=== PATIENT | male | born 1975 | race Caucasian/White ===

== ENCOUNTER 2023-08-13 09:36 | Outpatient (AMB) | payer OTHER, SELFPAY ==
--- NOTE | 2023-08-13 09:52 | MHC.PC.OV ---
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 Intake Note: New patient visit Allergies erythromycin base Allergy (Severe, Verified 08/13/23 09:53) Hives Medication List - Last Reconciled 08/13/23 by Kristi Palma MD oxycodone-acetaminophen 10-325 mg 1 tab PO QID PRN testosterone 81 mg topical QAM Tobacco use date assessed: 08/13/23 Dental Screening Dental Screen Date: 08/13/23 Did you have a dental visit in the last 12 months?: Yes Did you have a dental problem in the last 6 months where you did not have access to dental care?: No Was dental information given to patient?: Patient has dentist HPI HPI Comments History of Present Illness Details The patient is a 48 year old male with a past medical history of chronic pain, low testosterone presenting for follow up. Transfer records not yet received Chronic pain: On percocet 10/325mg daily QID qty 112. Utox within the year. Previously seeing ortho/physiatry. Family history of prostate cancer. Requests psa. No symptoms ROS CONSTITUTIONAL: Denies weight loss, fever and chills. HEENT: Denies changes in vision and hearing. RESPIRATORY: Denies SOB and cough. CV: Denies palpitations and CP GI: Denies abdominal pain, nausea, vomiting and diarrhea. : Denies dysuria and urinary frequency. MSK: Denies new myalgia and joint pain. SKIN: Denies rash and pruritus. NEUROLOGICAL: Denies headache PSYCHIATRIC: Denies recent changes in mood. PHYSICAL EXAM: GENERAL: Alert and oriented x 3. NAD EYES: EOMI. Anicteric. HENT: Moist mucous membranes. No scleral icterus. No cervical lymphadenopathy. LUNGS: Clear to auscultation bilaterally. CARDIOVASCULAR: Regular rate and rhythm. No murmur. No JVD. ABDOMEN: Soft, non-tender +bs EXTREMITIES: No edema. Non-tender. SKIN: No rashes or lesions. Warm. NEUROLOGIC: No focal neurological deficits. CN II-XII grossly intact PSYCHIATRIC: Cooperative. Appropriate mood and affect [facility] Surgical History (Updated 08/13/23 @ 10:07 by Meera Horton CMA) S/P right knee arthroscopy H/O arthroscopy of left knee H/O vasectomy S/P tonsillectomy Family History (Updated 08/13/23 @ 10:11 by Meera Horton CMA) Father Hypercholesteremia Paternal Grandmother Breast cancer Paternal Grandfather Prostate cancer Social History Housing: House Patient Tobacco Use Status: Former Tobacco user Cigarette Packs Per Day: 1 Years Smoked: 20 e-Cigarette/Vaping Use: Currently Using Second Hand Smoke Exposure: No service: No Current occupational status: retired 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 1. Little interest or pleasure in doing things: not at all 2. Feeling down, depressed, or hopeless: not at all 3. Trouble falling or staying asleep, or sleeping too much: not at all 4. Feeling tired or having little energy: not at all 5. Poor appetite or overeating: not at all 6. Feeling bad about yourself - or that you are a failure or have let yourself or your family down: not at all 7. Trouble concentrating on things, such as reading the newspaper or watching television: not at all 8. Moving or speaking so slowly that other people could have noticed. Or the opposite - being so fidgety or restless that you have been moving around a lot more than usual: not at all 9. Thoughts that you would be better off or of hurting yourself in some way: not at all Total score: 0 Depression Screening Interpretation: Negative Depression Screening Done: Yes 42202 - PHQ-9 Billing: Yes Source: Developed by Drs. Jeffrey Lubin, Galilea Mittal, Byron Wild and colleagues, with an educational valerie from [employer]. Thrive Questionnaire Date Thrive assessed: 08/13/23 I am a: Patient What is your living situation today?: I have a steady place to live Within the past 12 months, did the food you bought not last and you didn't have the money to get more?: Never true Within the past 12 months, did you worry whether your food would run out before you got money to buy more?: Never true Do you have trouble paying for medicines?: No Do you have trouble getting transportation to medical appointments?: No Do you have trouble paying your heating and electricity bill?: No Do you have trouble taking care of your child, family member or friend?: No Do you have trouble with day-to-day activities such as bathing, preparing meals, shopping, managing finances, etc.?: No Are you currently unemployed and looking for a job?: No Are you interested in more education?: No Please select the resources that you would like help with: None Currently or been in a relationship where the following occur: no concerns reported THRIVE Score: 0 AUDIT C Alcohol Use Questionnaire (AUDIT-C) 1. How often do you have a drink containing alcohol?: 2-3 times a week 2. How many drinks containing alcohol do you have on a typical day when you are drinking?: 3 or 4 3. How often do you have six or more drinks on one occasion?: Never Total Score: 4 ROBBI-7 AMB Questionnaire ROBBI-7 Date ROBBI - 7 assessed: 08/13/23 Feeling nervous, anxious, or on edge: 1 = Several days Not being able to stop or control worryin = Several days Worrying too much about different things: 1 = Several days Trouble relaxin = Several days Being so restless that it is hard to sit still: 1 = Several days Becoming easily annoyed or irritable: 1 = Several days Feeling afraid as if something awful might happen: 1 = Several days Total ROBBI-7 score (0-4 normal; 5-9 mild; 10-14 moderate; 15-21 severe): 7 Source: Developed by Drs. Jeffrey Lubin, Galilea Mittal, Byron Wild and colleagues, with an educational valerie from [employer]. ROBBI-7 Assessment Billing ROBBI-7 Assessment Tool: ROBBI-7 Assessment 94104 Physical exam (Primary Care) Vital Signs: Last Vital Signs Temp 98.1 F 08/13/23 09:56 Pulse 74 08/13/23 09:56 Resp 14 08/13/23 09:56 BP 140/86 H 08/13/23 09:56 Pulse Ox 97 08/13/23 09:56 Oxygen Delivery Method Room Air 08/13/23 09:56 BMI result Body Mass Index 27.5 Tobacco/Smoking Status: Tobacco use Status Tobacco use date assessed 08/13/23 08/13/23 10:03 Patient Tobacco Use Status Former Tobacco user 08/13/23 10:03 e-Cigarette/Vaping Use Currently Using 08/13/23 10:03 PHQ-9: PHQ-9 Score PHQ-9: Total score 0 08/13/23 11:07 Depression Screening Interpretation: Negative Thrive Assessment: Date of Thrive Assessment Date Thrive assessed 08/13/23 08/13/23 10:03 Currently or been in a relationship where the following occur: no concerns reported Assessment and Plan Assessment & Plan (1) Medication monitoring encounter: Comment: patient will continue current pain medications. Last script from prior practice. Code(s): Z51.81 - Encounter for therapeutic drug level monitoring (2) Back pain: Code(s): M54.9 - Dorsalgia, unspecified Qualifiers: Back pain location: back pain in unspecified location Back pain laterality: unspecified Chronicity: chronic Qualified Code(s): M54.9 - Dorsalgia, unspecified; G89.29 - Other chronic pain (3) Screening for prostate cancer: Comment: psa ordered Code(s): Z12.5 - Encounter for screening for malignant neoplasm of prostate (4) Hyperlipidemia: Comment: patient will return in six month for cpe with labs prior Code(s): E78.5 - Hyperlipidemia, unspecified Qualifiers: Hyperlipidemia type: mixed hyperlipidemia Qualified Code(s): E78.2 - Mixed hyperlipidemia (5) Screening for metabolic disorder: Code(s): Z13.228 - Encounter for screening for other metabolic disorders Orders: Orders Complete Blood Count Auto Diff 5 Months E78.5 - Hyperlipidemia, unspecified, M54.9 - Dorsalgia, unspecified, Z12.5 - Encounter for screening for malignant neoplasm of prostate, Z13.228 - Encounter for screening for other metabolic disorders, Z51.81 - Encounter for therapeutic drug level monitoring Comprehensive Met. Panel 5 Months E78.5 - Hyperlipidemia, unspecified, M54.9 - Dorsalgia, unspecified, Z12.5 - Encounter for screening for malignant neoplasm of prostate, Z13.228 - Encounter for screening for other metabolic disorders, Z51.81 - Encounter for therapeutic drug level monitoring Testosterone, Free/Total 5 Months E78.5 - Hyperlipidemia, unspecified, M54.9 - Dorsalgia, unspecified, Z12.5 - Encounter for screening for malignant neoplasm of prostate, Z13.228 - Encounter for screening for other metabolic disorders, Z51.81 - Encounter for therapeutic drug level monitoring Lipid Panel 5 Months E78.5 - Hyperlipidemia, unspecified, M54.9 - Dorsalgia, unspecified, Z12.5 - Encounter for screening for malignant neoplasm of prostate, Z13.228 - Encounter for screening for other metabolic disorders, Z51.81 - Encounter for therapeutic drug level monitoring Prostate Specific Antigen 5 Months E78.5 - Hyperlipidemia, unspecified, M54.9 - Dorsalgia, unspecified, Z12.5 - Encounter for screening for malignant neoplasm of prostate, Z13.228 - Encounter for screening for other metabolic disorders, Z51.81 - Encounter for therapeutic drug level monitoring Coding Level of Care Code Est Pt Level 4 (57474) Complex EM visit Add On G2211 Diagnoses Medication monitoring encounter Z51.81 Chronic back pain, unspecified back location, unspecified back pain laterality M54.9; G89.29 Back pain location: back pain in unspecified location Back pain laterality: unspecified Chronicity: chronic Screening for prostate cancer Z12.5 Mixed hyperlipidemia E78.2 Hyperlipidemia type: mixed hyperlipidemia Screening for metabolic disorder Z13.228 Additional Codes ROBBI-7 Assessment Billing - ROBBI-7 Assessment Tool: ROBBI-7 Assessment 59536 ([id number])
[2023-08-13 09:56] VITALS: BP 140/86; PULSE 74; RESP 14; TEMP 36.7; O2SAT 97; BMI 27.5
== END 2023-08-13 10:35 | disposition home or self-care (01) ==
PROVIDERS: PCP Internal Medicine; Visit Provider Internal Medicine
DX: M54.9 Dorsalgia, unspecified (principal); G89.29 Other chronic pain; E78.2 Mixed hyperlipidemia; Z51.81 Encounter for therapeutic drug level monitoring; Z12.5 Encounter for screening for malignant neoplasm of prostate; Z13.228 Encounter for screening for other metabolic disorders
CPT/HCPCS: 99214; G2211

== ENCOUNTER 2023-11-08 15:36 | Outpatient (AMB) | payer OTHER, SELFPAY ==
--- NOTE | 2023-11-08 15:33 | MHC.PC.OV ---
Intake Visit Reasons: follow up medication Intake Note: Patient would like to follow up regarding medication. Patient is okay with a phone call earlier than his appointed time. Dramatic Director Required: No Accompanied by: Self / Same As Patient Allergies erythromycin base Allergy (Severe, Verified 08/13/23 09:53) Hives Tobacco use date assessed: 08/13/23 Dental Screening Dental Screen Date: 08/13/23 HPI HPI Comments History of Present Illness Details The patient is a 48 year old male with a past medical history of chronic pain, low testosterone presenting for follow up. Chronic pain: On percocet 10/325mg daily QID qty 112. Previously seeing ortho/physiatry. Tried cyclobenzaprine in past. Stopped working. Would like to try different muscle relaxant Family history of prostate cancer. Orders are in for psa as requested. ROS CONSTITUTIONAL: Denies weight loss, fever and chills. HEENT: Denies changes in vision and hearing. RESPIRATORY: Denies SOB and cough. CV: Denies palpitations and CP GI: Denies abdominal pain, nausea, vomiting and diarrhea. : Denies dysuria and urinary frequency. MSK: Denies new myalgia and joint pain. SKIN: Denies rash and pruritus. NEUROLOGICAL: Denies headache PSYCHIATRIC: Denies recent changes in mood. PHYSICAL EXAM: Telehealth [facility] Surgical History (Updated 08/13/23 @ 10:07 by Meera Horton CMA) S/P right knee arthroscopy H/O arthroscopy of left knee H/O vasectomy S/P tonsillectomy Family History (Updated 08/13/23 @ 10:11 by Meera Horton CMA) Father Hypercholesteremia Paternal Grandmother Breast cancer Paternal Grandfather Prostate cancer Social History Housing: House Patient Tobacco Use Status: Former Tobacco user Cigarette Packs Per Day: 1 Years Smoked: 20 e-Cigarette/Vaping Use: Currently Using Second Hand Smoke Exposure: No service: No Current occupational status: retired 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 Jeffrey Lubin, Galilea Mittal, Byron Wild and colleagues, with an educational valerie from [employer]. Physical exam (Primary Care) Tobacco/Smoking Status: Tobacco use Status Tobacco use date assessed 08/13/23 11/08/23 15:35 Patient Tobacco Use Status Former Tobacco user 11/08/23 15:35 e-Cigarette/Vaping Use Currently Using 11/08/23 15:35 Thrive Assessment: Date of Thrive Assessment Date Thrive assessed 08/13/23 11/08/23 15:35 Telehealth Telehealth Telehealth Platform: Telephone Location of provider rendering services: practice address Location of patient: address on file Patient Identification confirmed using: Name, : Yes Telehealth method: voice only Patient verbally consented to treatment: Yes Patient verbally consented to billing insurance company: Yes Patient informed of any privacy concerns related to visit: Yes Minutes spent on Phone/Video with Pt.: 26 Assessment and Plan Assessment & Plan Medications: New baclofen 5 - 10 mg (0.5 - 1 x 10 mg) PO BEDTIME 30 days 60 tabs 0RF Coding Level of Care Code Tele Est Pt Level 3 (95352)
== END 2023-11-08 16:53 | disposition home or self-care (01) ==
LOC: HO.HMGFM 15:36
PROVIDERS: PCP Internal Medicine; Visit Provider Internal Medicine
DX: G89.4 Chronic pain syndrome (principal); E29.1 Testicular hypofunction
CPT/HCPCS: 99213

== ENCOUNTER 2024-01-17 13:37 | Outpatient (AMB) | payer OTHER, SELFPAY ==
--- NOTE | 2024-01-17 13:45 | MHC.PC.OV ---
Vital Signs 01/17/24 13:46 Height 5 ft 8.9 in Weight 186 lb 4 oz BMI 27.6 BP 124/80 Blood Pressure Location Rt brachial Position Sitting Pulse 73 Pulse Source Pulse Oximeter Pulse Oximetry (%) 96 Oxygen Delivery Method Room Air Intake Visit Reasons: med review Intake Note: Medication follow up Allergies erythromycin base Allergy (Severe, Verified 01/17/24 13:45) Hives Tobacco use date assessed: 08/13/23 Dental Screening Dental Screen Date: 08/13/23 HPI HPI Comments History of Present Illness Details The patient is a 48 year old male with a past medical history of chronic pain, low testosterone presenting for follow up. Chronic pain: On percocet 10/325mg daily QID qty 112. Previously seeing ortho/physiatry. Tried cyclobenzaprine in past. Stopped working. Placed on baclofen which is helping. Family history of prostate cancer. Orders are in for psa as requested. Continues on testosterone replacement ROS CONSTITUTIONAL: Denies weight loss, fever and chills. HEENT: Denies changes in vision and hearing. RESPIRATORY: Denies SOB and cough. CV: Denies palpitations and CP GI: Denies abdominal pain, nausea, vomiting and diarrhea. : Denies dysuria and urinary frequency. MSK: Denies new myalgia and joint pain. SKIN: Denies rash and pruritus. NEUROLOGICAL: Denies headache PSYCHIATRIC: Denies recent changes in mood. PHYSICAL EXAM: GENERAL: Alert and oriented x 3. NAD EYES: EOMI. Anicteric. HENT: Moist mucous membranes. No scleral icterus. No cervical lymphadenopathy. LUNGS: Clear to auscultation bilaterally. CARDIOVASCULAR: Regular rate and rhythm. No murmur. No JVD. ABDOMEN: Soft, non-tender +bs EXTREMITIES: No edema. Non-tender. SKIN: No rashes or lesions. Warm. NEUROLOGIC: No focal neurological deficits. CN II-XII grossly intact PSYCHIATRIC: Cooperative. 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 1. Little interest or pleasure in doing things: not at all 2. Feeling down, depressed, or hopeless: not at all 3. Trouble falling or staying asleep, or sleeping too much: not at all 4. Feeling tired or having little energy: not at all 5. Poor appetite or overeating: not at all 6. Feeling bad about yourself - or that you are a failure or have let yourself or your family down: not at all 7. Trouble concentrating on things, such as reading the newspaper or watching television: not at all 8. Moving or speaking so slowly that other people could have noticed. Or the opposite - being so fidgety or restless that you have been moving around a lot more than usual: not at all 9. Thoughts that you would be better off or of hurting yourself in some way: not at all Total score: 0 Depression Screening Interpretation: Negative Depression Screening Done: Yes 08163 - PHQ-9 Billing: Yes Source: Developed by Drs. Jeffrey Lubin, Galilea Mittal, Byron Wild and colleagues, with an educational valerie from [employer]. Thrive Questionnaire Date Thrive assessed: 08/13/23 I am a: Patient What is your living situation today?: I have a steady place to live Within the past 12 months, did the food you bought not last and you didn't have the money to get more?: Never true Within the past 12 months, did you worry whether your food would run out before you got money to buy more?: Never true Do you have trouble paying for medicines?: No Do you have trouble getting transportation to medical appointments?: No Do you have trouble paying your heating and electricity bill?: No Do you have trouble taking care of your child, family member or friend?: No Do you have trouble with day-to-day activities such as bathing, preparing meals, shopping, managing finances, etc.?: No Are you currently unemployed and looking for a job?: No Are you interested in more education?: No Please select the resources that you would like help with: None Currently or been in a relationship where the following occur: No concerns reported THRIVE Score: 0 AUDIT C Alcohol Use Questionnaire (AUDIT-C) 1. How often do you have a drink containing alcohol?: 2-4 times a month 2. How many drinks containing alcohol do you have on a typical day when you are drinking?: 1 or 2 3. How often do you have six or more drinks on one occasion?: Never Total Score: 2 ROBBI-7 AMB Questionnaire ROBBI-7 Date ROBBI - 7 assessed: 08/13/23 Feeling nervous, anxious, or on edge: 0 = Not at all Not being able to stop or control worryin = Not at all Worrying too much about different things: 0 = Not at all Trouble relaxin = Not at all Being so restless that it is hard to sit still: 0 = Not at all Becoming easily annoyed or irritable: 0 = Not at all Feeling afraid as if something awful might happen: 0 = Not at all Total ROBBI-7 score (0-4 normal; 5-9 mild; 10-14 moderate; 15-21 severe): 0 Source: Developed by Drs. Jeffrey Lubin, Galilea Mittal, Byron Wild and colleagues, with an educational valerie from [employer]. Physical exam (Primary Care) Vital Signs: Last Vital Signs Pulse 73 01/17/24 13:46 BP 124/80 01/17/24 13:46 Pulse Ox 96 01/17/24 13:46 Oxygen Delivery Method Room Air 01/17/24 13:46 BMI result Body Mass Index 27.6 Tobacco/Smoking Status: Tobacco use Status Tobacco use date assessed 08/13/23 01/17/24 13:49 Patient Tobacco Use Status Former Tobacco user 01/17/24 13:49 e-Cigarette/Vaping Use Currently Using 01/17/24 13:49 PHQ-9: PHQ-9 Score PHQ-9: Total score 0 01/17/24 13:52 Depression Screening Interpretation: Negative Thrive Assessment: Date of Thrive Assessment Date Thrive assessed 08/13/23 01/17/24 13:49 Currently or been in a relationship where the following occur: No concerns reported Coding Level of Care Code Est Pt Level 3 (89958) Diagnoses Chronic back pain, unspecified back location, unspecified back pain laterality M54.9; G89.29 Back pain laterality: unspecified Back pain location: back pain in unspecified location Chronicity: chronic Mixed hyperlipidemia E78.2 Hyperlipidemia type: mixed hyperlipidemia Additional Codes PHQ-9 - 45292 - PHQ-9 Billing: Yes ([id number]) Assessment & Plan Assessment & Plan (1) Back pain: Code(s): M54.9 - Dorsalgia, unspecified Category: Medical Qualifiers: Back pain laterality: unspecified Back pain location: back pain in unspecified location Chronicity: chronic Qualified Code(s): M54.9 - Dorsalgia, unspecified; G89.29 - Other chronic pain Plan: Controlled on current pain regimen (2) Hyperlipidemia: Code(s): E78.5 - Hyperlipidemia, unspecified Category: Medical Qualifiers: Hyperlipidemia type: mixed hyperlipidemia Qualified Code(s): E78.2 - Mixed hyperlipidemia Plan: Lipids ordered Low cholesterol diet Medications: New sildenafil administer 30 minutes to 4 hours before activity 100 mg PO DAILY PRN 60 tabs 3RF sexual activity Changed From baclofen 5 - 10 mg (0.5 - 1 x 10 mg) PO BEDTIME 90 tabs 3RF To baclofen patient may pay out of pocket 5 - 10 mg (0.5 - 1 x 10 mg) PO BEDTIME 90 tabs 3RF From oxycodone-acetaminophen 10-325 mg 1 tab PO QID PRN 112 tabs 0RF pain To oxycodone-acetaminophen 10-325 mg Patient may pay out of pocket 1 tab PO QID PRN 112 tabs 0RF pain
[2024-01-17 13:46] VITALS: BP 124/80; PULSE 73; O2SAT 96; BMI 27.6
== END 2024-01-17 14:12 | disposition home or self-care (01) ==
PROVIDERS: PCP Internal Medicine; Visit Provider Internal Medicine
DX: M54.9 Dorsalgia, unspecified (principal); G89.29 Other chronic pain; E78.2 Mixed hyperlipidemia

== ENCOUNTER → 2024-01-17 13:37 | Outpatient (BNVA) | payer OTHER, SELFPAY | PROVIDERS: PCP Internal Medicine; Visit Provider Internal Medicine | DX: G89.29 Other chronic pain (principal); M54.9 Dorsalgia, unspecified; E78.2 Mixed hyperlipidemia; Z79.891 Long term (current) use of opiate analgesic | CPT/HCPCS: 96127 ==

== ENCOUNTER 2024-04-21 13:49 | Outpatient (AMB) | payer OTHER, SELFPAY ==
--- NOTE | 2024-04-21 14:06 | A.OFFPC_ITS ---
Vital Signs 04/21/24 14:10 Height 5 ft 8 in Weight 164 lb BMI 24.9 BP 110/60 Blood Pressure Location Lt brachial Position Sitting Respiration 14 Pulse 75 Pulse Source Pulse Oximeter Temp 97.9 F Temp Source Oral Pulse Oximetry (%) 100 Oxygen Delivery Method Room Air Intake Visit Reasons: f/u med review Intake Note: follow up on oxycodone and testosterone Allergies erythromycin base Allergy (Severe, Verified 04/21/24 14:09) Hives Medication List - Last Reconciled 04/21/24 by Kristi Palma MD baclofen 5 - 10 mg (0.5 - 1 x 10 mg) PO BEDTIME cholecalciferol (vitamin D3) PO [ic iodine ,] oxycodone-acetaminophen 10-325 mg 1 tab PO QID PRN sildenafil 100 mg PO DAILY PRN testosterone 4 pumps topical DAILY Tobacco use date assessed: 08/13/23 Dental Screening Dental Screen Date: 08/13/23 HPI HPI Comments History of Present Illness Details The patient is a 48 year old male with a past medical history of chronic pain, low testosterone presenting for follow up. Chronic pain: On percocet 10/325mg daily QID qty 112, baclofen. Pain levels are stable Previously seeing ortho/physiatry. Tried cyclobenzaprine in past. Stopped working. Family history of prostate cancer. PSA order is in. Continues on testosterone replacement New right foot pain. Was handling his 3 large dogs about 3 weeks ago and believes he must have hit the top of his right foot on a crate or similar. He has had sustained pain on the top mid right foot with some radiation into the base of the toes. He has had mild swelling in the area ROS CONSTITUTIONAL: Denies weight loss, fever and chills. HEENT: Denies changes in vision and hearing. RESPIRATORY: Denies SOB and cough. CV: Denies palpitations and CP GI: Denies abdominal pain, nausea, vomiting and diarrhea. : Denies dysuria and urinary frequency. MSK: Denies new myalgia and joint pain. SKIN: Denies rash and pruritus. NEUROLOGICAL: Denies headache PSYCHIATRIC: Denies recent changes in mood. PHYSICAL EXAM: GENERAL: Alert and oriented x 3. NAD EYES: EOMI. Anicteric. HENT: Moist mucous membranes. No scleral icterus. No cervical lymphadenopathy. LUNGS: Clear to auscultation bilaterally. CARDIOVASCULAR: Regular rate and rhythm. No murmur. No JVD. ABDOMEN: Soft, non-tender +bs EXTREMITIES: No edema. Non-tender. +DP pulses b/l. Mild mid right foot swelling SKIN: No rashes or lesions. Warm. NEUROLOGIC: No focal neurological deficits. CN II-XII grossly intact PSYCHIATRIC: Cooperative. 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 1. Little interest or pleasure in doing things: not at all 2. Feeling down, depressed, or hopeless: not at all 3. Trouble falling or staying asleep, or sleeping too much: not at all 4. Feeling tired or having little energy: not at all 5. Poor appetite or overeating: not at all 6. Feeling bad about yourself - or that you are a failure or have let yourself or your family down: not at all 7. Trouble concentrating on things, such as reading the newspaper or watching television: not at all 8. Moving or speaking so slowly that other people could have noticed. Or the opposite - being so fidgety or restless that you have been moving around a lot more than usual: not at all 9. Thoughts that you would be better off or of hurting yourself in some way: not at all Total score: 0 Source: Developed by Galilea Siddiqui B.W. Kyrie, Byron Wild and colleagues, with an educational valerie from [employer]. Thrive Questionnaire Date Thrive assessed: 08/13/23 I am a: Patient What is your living situation today?: I have a steady place to live Within the past 12 months, did the food you bought not last and you didn't have the money to get more?: I choose not to answer this question Within the past 12 months, did you worry whether your food would run out before you got money to buy more?: I choose not to answer this question Do you have trouble paying for medicines?: I choose not to answer this question Do you have trouble getting transportation to medical appointments?: I choose not to answer this question Do you have trouble paying your heating and electricity bill?: I choose not to answer this question Do you have trouble taking care of your child, family member or friend?: I choose not to answer this question Do you have trouble with day-to-day activities such as bathing, preparing meals, shopping, managing finances, etc.?: I choose not to answer this question Are you currently unemployed and looking for a job?: I choose not to answer this question Are you interested in more education?: I choose not to answer this question Please select the resources that you would like help with: None Currently or been in a relationship where the following occur: No concerns reported THRIVE Score: 0 AUDIT C Alcohol Use Questionnaire (AUDIT-C) 1. How often do you have a drink containing alcohol?: 2-3 times a week 2. How many drinks containing alcohol do you have on a typical day when you are drinking?: 1 or 2 3. How often do you have six or more drinks on one occasion?: Less than monthly Total Score: 4 ROBBI-7 AMB Questionnaire ROBBI-7 Date ROBBI - 7 assessed: 08/13/23 Feeling nervous, anxious, or on edge: 0 = Not at all Not being able to stop or control worryin = Not at all Worrying too much about different things: 0 = Not at all Trouble relaxin = Not at all Being so restless that it is hard to sit still: 0 = Not at all Becoming easily annoyed or irritable: 0 = Not at all Feeling afraid as if something awful might happen: 0 = Not at all Total ROBBI-7 score (0-4 normal; 5-9 mild; 10-14 moderate; 15-21 severe): 0 Source: Developed by Drs. Jeffrey Lubin, Galilea Mittal, Byron Wild and colleagues, with an educational valerie from [employer]. Physical exam (Primary Care) Vital Signs: Last Vital Signs Temp 97.9 F 04/21/24 14:10 Pulse 75 04/21/24 14:10 Resp 14 04/21/24 14:10 BP 110/60 04/21/24 14:10 Pulse Ox 100 04/21/24 14:10 Oxygen Delivery Method Room Air 04/21/24 14:10 BMI result Body Mass Index 24.9 Tobacco/Smoking Status: Tobacco use Status Tobacco use date assessed 08/13/23 04/21/24 14:13 Patient Tobacco Use Status Former Tobacco user 04/21/24 14:13 e-Cigarette/Vaping Use Currently Using 04/21/24 14:13 PHQ-9: PHQ-9 Score PHQ-9: Total score 0 04/21/24 14:21 Thrive Assessment: Date of Thrive Assessment Date Thrive assessed 08/13/23 04/21/24 14:13 Currently or been in a relationship where the following occur: No concerns reported Coding Level of Care Code Est Pt Level 4 (26106) Diagnoses Right foot pain M79.671 Chronic back pain, unspecified back location, unspecified back pain laterality M54.9; G89.29 Back pain location: back pain in unspecified location Chronicity: chronic Back pain laterality: unspecified Assessment & Plan Assessment & Plan (1) Right foot pain: Code(s): M79.671 - Pain in right foot Category: Medical Plan: Right foot pain-referral to ortho for ongoing pain x 3 weeks (2) Back pain: Code(s): M54.9 - Dorsalgia, unspecified Category: Medical Qualifiers: Back pain location: back pain in unspecified location Chronicity: chronic Back pain laterality: unspecified Qualified Code(s): M54.9 - Dorsalgia, unspecified; G89.29 - Other chronic pain Plan: stable on current medications Orders: Referrals Orthopedics Referral M79.671 - Pain in right foot Medications: Refilled oxycodone-acetaminophen 10-325 mg Patient may pay out of pocket 1 tab PO QID PRN 112 tabs 0RF pain
[2024-04-21 14:10] VITALS: BP 110/60; PULSE 75; RESP 14; TEMP 36.6; O2SAT 100; BMI 24.9
== END 2024-04-21 14:33 | disposition home or self-care (01) ==
PROVIDERS: PCP Internal Medicine; Visit Provider Internal Medicine
DX: M79.671 Pain in right foot (principal); M54.9 Dorsalgia, unspecified; G89.29 Other chronic pain

== ENCOUNTER 2024-07-20 15:39 | Outpatient (AMB) | payer OTHER, SELFPAY ==
--- NOTE | 2024-07-20 16:21 | MHC.PC.OV ---
Intake Visit Reasons: phone pain meds Allergies erythromycin base Allergy (Severe, Verified 04/21/24 14:09) Hives Tobacco use date assessed: 08/13/23 Dental Screening Dental Screen Date: 08/13/23 HPI HPI Comments History of Present Illness Details The patient is a 49 year old male with a past medical history of chronic pain, low testosterone presenting for follow up. Chronic pain: On percocet 10/325mg daily QID qty 112, baclofen. Pain levels are stable. Previously seeing ortho/physiatry. Tried cyclobenzaprine in past. Stopped working. Family history of prostate cancer. Continues on testosterone replacement-topical. Endorses fatigue, decreased libido. Interested in urology referral MSK right foot fracture. Saw orthopedics. Was handling his 3 large dogs about 3 weeks ago and believes he must have hit the top of his right foot on a crate or similar. He has had sustained pain on the top mid right foot with some radiation into the base of the toes. 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 Cognitive needs: No Hearing needs: Yes (Hearing aids) Vision needs: No Questionnaire Thrive Questionnaire Date Thrive assessed: 04/21/24 I am a: Patient What is your living situation today?: I have a steady place to live Within the past 12 months, did the food you bought not last and you didn't have the money to get more?: I choose not to answer this question Within the past 12 months, did you worry whether your food would run out before you got money to buy more?: I choose not to answer this question Do you have trouble paying for medicines?: I choose not to answer this question Do you have trouble getting transportation to medical appointments?: I choose not to answer this question Do you have trouble paying your heating and electricity bill?: I choose not to answer this question Do you have trouble taking care of your child, family member or friend?: I choose not to answer this question Do you have trouble with day-to-day activities such as bathing, preparing meals, shopping, managing finances, etc.?: I choose not to answer this question Are you currently unemployed and looking for a job?: I choose not to answer this question Are you interested in more education?: I choose not to answer this question Please select the resources that you would like help with: None Currently or been in a relationship where the following occur: No concerns reported THRIVE Score: 0 ROBBI-7 AMB Questionnaire ROBBI-7 Date ROBBI - 7 assessed: 08/13/23 Source: Developed by Drs. Jeffrey Lubin, Galilea Mittal, Byron Wild and colleagues, with an educational valerie from [employer]. Physical exam (Primary Care) Tobacco/Smoking Status: Tobacco use Status Tobacco use date assessed 08/13/23 07/20/24 16:21 Patient Tobacco Use Status Former Tobacco user 07/20/24 16:21 e-Cigarette/Vaping Use Currently Using 07/20/24 16:21 Thrive Assessment: Date of Thrive Assessment Date Thrive assessed 04/21/24 07/20/24 16:21 Currently or been in a relationship where the following occur: No concerns reported Telehealth Telehealth Telehealth Platform: [facility] Location of provider rendering services: practice address Location of patient: address on file Patient Identification confirmed using: Name, : Yes Telehealth method: voice only Patient verbally consented to treatment: Yes Patient verbally consented to billing insurance company: Yes Patient informed of any privacy concerns related to visit: Yes Minutes spent on Phone/Video with Pt.: 25 Coding Level of Care Code Tele Est Pt Level 3 (05871) Diagnoses Anxiety F41.9 Testosterone deficiency E34.9 Mixed hyperlipidemia E78.2 Hyperlipidemia type: mixed hyperlipidemia Chronic back pain, unspecified back location, unspecified back pain laterality M54.9; G89.29 Back pain location: back pain in unspecified location Chronicity: chronic Back pain laterality: unspecified Assessment & Plan Assessment & Plan (1) Anxiety: Code(s): F41.9 - Anxiety disorder, unspecified Category: Medical (2) Testosterone deficiency: Code(s): E34.9 - Endocrine disorder, unspecified Category: Medical (3) Hyperlipidemia: Code(s): E78.5 - Hyperlipidemia, unspecified Category: Medical Qualifiers: Hyperlipidemia type: mixed hyperlipidemia Qualified Code(s): E78.2 - Mixed hyperlipidemia (4) Back pain: Code(s): M54.9 - Dorsalgia, unspecified Category: Medical Qualifiers: Back pain location: back pain in unspecified location Chronicity: chronic Back pain laterality: unspecified Qualified Code(s): M54.9 - Dorsalgia, unspecified; G89.29 - Other chronic pain Plan Anxiety/insomnia-add propranolol. This has been beneficial in the past Decreased libido, h/o testosterone deficiency. Referral to urology placed Chronic pain-stable on current medication. Failed previous therapy Orders: Referrals Urology Referral E34.9 - Endocrine disorder, unspecified Medications: New propranolol 10 mg PO TID PRN 90 tabs 3RF anxiety Refilled oxycodone-acetaminophen 10-325 mg Patient may pay out of pocket 1 tab PO QID PRN 112 tabs 0RF pain
== END 2024-07-20 17:05 ==
LOC: HO.HMCFM 15:39
PROVIDERS: PCP Internal Medicine; Visit Provider Internal Medicine
DX: F41.9 Anxiety disorder, unspecified (principal); E34.9 Endocrine disorder, unspecified; E78.2 Mixed hyperlipidemia; M54.9 Dorsalgia, unspecified; G89.29 Other chronic pain

== ENCOUNTER → 2024-07-20 15:39 | Outpatient (BNVA) | payer OTHER, SELFPAY | PROVIDERS: PCP Internal Medicine; Visit Provider Internal Medicine ==

== ENCOUNTER 2024-09-28 11:31 | Outpatient (AMB) | payer OTHER, SELFPAY ==
--- NOTE | 2024-09-28 11:35 | MHC.PC.OV ---
Vital Signs 09/28/24 11:42 Height 5 ft 8 in Weight 163 lb 4 oz BMI 24.8 BP 120/64 Blood Pressure Location Lt brachial Position Sitting Respiration 12 Pulse 59 Pulse Source Pulse Oximeter Temp 98 F Temp Source Oral Pulse Oximetry (%) 97 Oxygen Delivery Method Room Air Intake Visit Reasons: cpe Intake Note: Physical Allergies erythromycin base Allergy (Severe, Verified 09/28/24 11:39) Hives Tobacco use date assessed: 09/28/24 Dental Screening Dental Screen Date: 09/28/24 Did you have a dental visit in the last 12 months?: No Did you have a dental problem in the last 6 months where you did not have access to dental care?: Yes Was dental information given to patient?: Patient has dentist (working on getting implants) HPI HPI Comments History of Present Illness Details The patient is a 49 year old male with a past medical history of chronic pain, low testosterone presenting for annual exam Chronic pain: On percocet 10/325mg daily QID qty 112, baclofen. Pain levels are stable. Previously seeing ortho/physiatry. Tried cyclobenzaprine in past. Stopped working. Family history of prostate cancer. Low testosterone. On transdermal replacement. Following with urology. MSK right foot fracture. Saw orthopedics. Was handling his 3 large dogs about 3 weeks ago and believes he must have hit the top of his right foot on a crate or similar. Pain has subsided Due for colon cancer screening-ok with cologuard. declines colonoscopy referral at present ROS see HPI PHYSICAL EXAM: GENERAL: Alert and oriented x 3. NAD EYES: EOMI. Anicteric. HENT: Moist mucous membranes. No scleral icterus. No cervical lymphadenopathy. LUNGS: Clear to auscultation bilaterally. CARDIOVASCULAR: Regular rate and rhythm. No murmur. No JVD. ABDOMEN: Soft, non-tender +bs EXTREMITIES: No edema. Non-tender. SKIN: No rashes or lesions. Warm. NEUROLOGIC: No focal neurological deficits. CN II-XII grossly intact PSYCHIATRIC: Cooperative. 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 Cognitive needs: No Hearing needs: Yes (Hearing aids) Vision needs: No Questionnaire Thrive Questionnaire Date Thrive assessed: 04/21/24 I am a: Patient What is your living situation today?: I have a steady place to live Within the past 12 months, did the food you bought not last and you didn't have the money to get more?: I choose not to answer this question Within the past 12 months, did you worry whether your food would run out before you got money to buy more?: I choose not to answer this question Do you have trouble paying for medicines?: I choose not to answer this question Do you have trouble getting transportation to medical appointments?: I choose not to answer this question Do you have trouble paying your heating and electricity bill?: I choose not to answer this question Do you have trouble taking care of your child, family member or friend?: I choose not to answer this question Do you have trouble with day-to-day activities such as bathing, preparing meals, shopping, managing finances, etc.?: I choose not to answer this question Are you currently unemployed and looking for a job?: I choose not to answer this question Are you interested in more education?: I choose not to answer this question Please select the resources that you would like help with: None Currently or been in a relationship where the following occur: No concerns reported THRIVE Score: 0 AUDIT C Alcohol Use Questionnaire (AUDIT-C) 1. How often do you have a drink containing alcohol?: 2-3 times a week 2. How many drinks containing alcohol do you have on a typical day when you are drinking?: 3 or 4 3. How often do you have six or more drinks on one occasion?: Never Total Score: 4 ROBBI-7 AMB Questionnaire ROBBI-7 Date ROBBI - 7 assessed: 06/11/24 Source: Developed by Drs. Jeffrey Lubin, Galilea Mittal, Byron Wild and colleagues, with an educational valerie from [employer]. Physical exam (Primary Care) Vital Signs: Last Vital Signs Temp 98 F 09/28/24 11:42 Pulse 59 09/28/24 11:42 Resp 12 09/28/24 11:42 BP 120/64 09/28/24 11:42 Pulse Ox 97 09/28/24 11:42 Oxygen Delivery Method Room Air 09/28/24 11:42 BMI result Body Mass Index 24.8 Tobacco/Smoking Status: Tobacco use Status Tobacco use date assessed 09/28/24 09/28/24 11:45 Patient Tobacco Use Status Former Tobacco user 09/28/24 11:36 e-Cigarette/Vaping Use Currently Using 09/28/24 11:36 Thrive Assessment: Date of Thrive Assessment Date Thrive assessed 04/21/24 09/28/24 11:36 Currently or been in a relationship where the following occur: No concerns reported Coding Level of Care Code Est Pt Prev Care 40-64y(45748) Diagnoses Physical exam Z00.00 Mixed hyperlipidemia E78.2 Hyperlipidemia type: mixed hyperlipidemia Testosterone deficiency E34.9 Assessment & Plan Assessment & Plan (1) Physical exam: Code(s): Z00.00 - Encounter for general adult medical examination without abnormal findings (2) Hyperlipidemia: Code(s): E78.5 - Hyperlipidemia, unspecified Category: Medical Qualifiers: Hyperlipidemia type: mixed hyperlipidemia Qualified Code(s): E78.2 - Mixed hyperlipidemia (3) Testosterone deficiency: Code(s): E34.9 - Endocrine disorder, unspecified Category: Medical Plan CPE Interval history reviewed Preventive measures for age discussed. cologuard ordered Labs ordered Low testosterone. Continue follow up with urology Orders: Orders Complete Blood Count Auto Diff Today E34.9 - Endocrine disorder, unspecified, E78.2 - Mixed hyperlipidemia, F41.9 - Anxiety disorder, unspecified, M25.50 - Pain in unspecified joint, Z13.228 - Encounter for screening for other metabolic disorders Lipid Panel Today E34.9 - Endocrine disorder, unspecified, E78.2 - Mixed hyperlipidemia, F41.9 - Anxiety disorder, unspecified, M25.50 - Pain in unspecified joint, Z13.228 - Encounter for screening for other metabolic disorders CRP High Sensitivity Today E34.9 - Endocrine disorder, unspecified, E78.2 - Mixed hyperlipidemia, F41.9 - Anxiety disorder, unspecified, M25.50 - Pain in unspecified joint, Z13.228 - Encounter for screening for other metabolic disorders Comprehensive Met. Panel Today E34.9 - Endocrine disorder, unspecified, E78.2 - Mixed hyperlipidemia, F41.9 - Anxiety disorder, unspecified, M25.50 - Pain in unspecified joint, Z13.228 - Encounter for screening for other metabolic disorders Erythrocyte Sedimentation Rate Today E34.9 - Endocrine disorder, unspecified, E78.2 - Mixed hyperlipidemia, F41.9 - Anxiety disorder, unspecified, M25.50 - Pain in unspecified joint, Z13.228 - Encounter for screening for other metabolic disorders Testosterone, Free/Total Today E34.9 - Endocrine disorder, unspecified, E78.2 - Mixed hyperlipidemia, F41.9 - Anxiety disorder, unspecified, M25.50 - Pain in unspecified joint, Z13.228 - Encounter for screening for other metabolic disorders Prostate Specific Antigen Today E34.9 - Endocrine disorder, unspecified, E78.2 - Mixed hyperlipidemia, F41.9 - Anxiety disorder, unspecified, M25.50 - Pain in unspecified joint, Z13.228 - Encounter for screening for other metabolic disorders Referrals Cologuard Test Z12.11 - Encounter for screening for malignant neoplasm of colon, Z12.12 - Encounter for screening for malignant neoplasm of rectum Medications: Refilled oxycodone-acetaminophen 10-325 mg Patient may pay out of pocket partial fill upon patient request 1 tab PO QID PRN 112 tabs 0RF pain G89.29 - Other chronic pain, M54.9 - Dorsalgia, unspecified
[2024-09-28 11:42] VITALS: BP 120/64; PULSE 59; RESP 12; TEMP 36.6; O2SAT 97; BMI 24.8
== END 2024-09-28 12:12 | disposition home or self-care (01) ==
LOC: HO.HMCFM 11:31
PROVIDERS: PCP Internal Medicine; Visit Provider Internal Medicine
DX: Z00.00 Encounter for general adult medical examination without abnormal findings (principal); E78.2 Mixed hyperlipidemia; E34.9 Endocrine disorder, unspecified

== ENCOUNTER 2024-10-16 08:15 | Outpatient (REF) | payer OTHER, SELFPAY ==
[2024-10-16 11:16] LABS: MANUAL DIFF FLAG NO
[2024-10-16 11:20] LABS: Hematocrit 40.9 % (42.0-52.0); Hemoglobin 13.9 g/dl (14.0-18.0); Imm Gran Abs Auto 0.01 X10*3/uL (0.00-0.03); Imm Gran Pct Auto 0.2 % (0.0-0.4); Lymphocytes Absolute Auto 1.4 X10*3/uL (1.2-4.9); Mean Corpuscular HGB Conc 34.0 g/dl (31.0-36.0); Mean Corpuscular Hemoglobin 29.4 pg (27.0-33.0); Mean Corpuscular Volume 86.5 fL (80.0-98.0); NRBC Abs Auto 0.000 X10*3/uL (0.0-0.012); NRBC Pct Auto 0.0 /100WBC (0.0-0.2); Platelet Count 308 X10*3/uL (160-400); Red Blood Count 4.73 X10*6/uL (4.60-5.80); White Blood Count 4.6 X10*3/uL (4.8-10.8)
[2024-10-16 11:39] LABS: Alanine Aminotransferase 22 U/L (0-40); Albumin Level 4.6 g/dL (3.5-5.0); Alkaline Phosphatase 60 U/L (39-117); Anion Gap 9 (12-20); Aspartate Amino Transferase 27 U/L (5-37); Blood Urea Nitrogen 7 mg/dL (9-16); Calcium 9.4 mg/dL (8.4-10.2); Carbon Dioxide 31 mmol/L (22-29); Chloride 104 mmol/L (96-108); Cholesterol 196 mg/dL (<200); Estimated Glomerular Filt Rate > 60; HDL Cholesterol 42 mg/dL (>40); Potassium 4.3 mmol/L (3.3-5.1); Sodium 140 mmol/L (135-145); Total Protein 6.8 g/dL (6.5-8.0); Triglycerides 121 mg/dL (<150)
[2024-10-16 11:50] LABS: Prostate Specific Antigen 0.83 ng/mL (<0.05-4.0)
[2024-10-22 14:18] LABS: Testosterone, Free 24.2 pg/mL (35.0-155.0)
== END 2024-10-16 08:16 | disposition home or self-care (01) ==
LOC: HO.WFDLDS 08:15
PROVIDERS: Visit Provider Internal Medicine
DX: Z12.5 Encounter for screening for malignant neoplasm of prostate (principal); Z51.81 Encounter for therapeutic drug level monitoring; Z13.228 Encounter for screening for other metabolic disorders; M54.9 Dorsalgia, unspecified; M25.50 Pain in unspecified joint; E34.9 Endocrine disorder, unspecified; E78.2 Mixed hyperlipidemia; F41.9 Anxiety disorder, unspecified
CPT/HCPCS: 36415; 80053; 80061; 84153; 84402; 84403; 85025; 85652; 86141

== ENCOUNTER 2024-10-20 14:13 | Outpatient (AMB) | payer OTHER, SELFPAY ==
--- NOTE | 2024-10-20 14:16 | A.OFFVIS_ITS ---
Intake Visit Reasons: evaluate low testosterone Intake Note: New Patient is present for low Testosterone Urology Rx:Sildenafil, Testosterone Blood Thinners:none Imaging completed: none Labs done 10/16/2024, PSA 0.83, Testosterone is pending Cash Application Clerk Required: No Accompanied by: Self / Same As Patient Allergies erythromycin base Allergy (Severe, Verified 10/20/24 14:17) Hives PFSH Surgical History S/P right knee arthroscopy H/O arthroscopy of left knee H/O vasectomy S/P tonsillectomy Family History Father Hypercholesteremia Paternal Grandmother Breast cancer Paternal Grandfather Prostate cancer Social History Housing: House Patient Tobacco Use Status: Former Tobacco user Cigarette Packs Per Day: 1 Years Smoked: 20 e-Cigarette/Vaping Use: Currently Using Second Hand Smoke Exposure: No service: No Current occupational status: retired 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 Cognitive needs: No Hearing needs: Yes (Hearing aids) Vision needs: No Results AMB Urinalysis, Automated UA Leukoctes 0 Nathanael/uL Last Edit by ANGELITO Carey on 10/20/24 14:36 UA Nitrite Negative Last Edit by ANGELITO Carey on 10/20/24 14:36 UA Urobilinogen 3.5 mg/dL Last Edit by ANGELITO Carey on 10/20/24 14:3 6 UA Protein 0 mg/dL Last Edit by ANGELITO Carey on 10/20/24 14:36 UA pH 7.0 Last Edit by ANGELITO Carey on 10/20/24 14:36 UA Blood 0 Dino/uL Last Edit by ANGELITO Carey on 10/20/24 14:36 UA Specific [place] 1.005 Last Edit by ANGELITO Carey on 10/20/24 14: 36 UA Ketone Negative Last Edit by ANGELITO Carey on 10/20/24 14:36 UA Bilirubin 0 mg/dL Last Edit by ANGELITO Carey on 10/20/24 14:36 UA Glucose 0 mg/dL Last Edit by ANGELITO Carey on 10/20/24 14:36 Results Reviewed Results Reviewed: Laboratory Last Values Urine pH (Auto) 7.0 10/20/24 14:35 Specific [place] (Auto) 1.005 10/20/24 14:35 Urine Protein (Auto) 0 mg/dL 10/20/24 14:35 Glucose (UA)(Auto) 0 mg/dL 10/20/24 14:35 Urine Ketones (Auto) Negative 10/20/24 14:35 Urine Blood (Auto) 0 Dino/uL 10/20/24 14:35 Urine Nitrite (Auto) Negative 10/20/24 14:35 Urine Bilirubin (Auto) 0 mg/dL 10/20/24 14:35 Urine Urobilinogen (Auto) 3.5 mg/dL 10/20/24 14:35 Leukocyte Esterase (Auto) 0 Nathanael/uL 10/20/24 14:35 Assessment & Plan Assessment & Plan (1) Low testosterone in male: Code(s): R79.89 - Other specified abnormal findings of blood chemistry Category: Medical Orders: Orders AMB Urinalysis Automated Today Z13.9 - Encounter for screening, unspecified Coding Diagnoses Low testosterone in male R79.89
== END 2024-10-20 15:28 | disposition home or self-care (01) ==
LOC: HO.HUSH 14:14
PROVIDERS: PCP Internal Medicine; Visit Provider Urology
DX: Z13.9 Encounter for screening, unspecified (principal)

== ENCOUNTER → 2024-10-20 14:13 | Outpatient (BNVA) | payer OTHER, SELFPAY | PROVIDERS: PCP Internal Medicine; Visit Provider Urology | DX: R79.89 Other specified abnormal findings of blood chemistry (principal) | CPT/HCPCS: 81003 ==

== ENCOUNTER 2025-01-04 16:18 | Outpatient (AMB) | payer OTHER, SELFPAY ==
--- NOTE | 2025-01-04 15:41 | MHC.PC.OV ---
Intake Visit Reasons: telehealth med check Intake Note: Medication follow up Landcare Officer Required: No Allergies erythromycin base Allergy (Severe, Verified 01/04/25 16:12) Hives Tobacco use date assessed: 01/04/25 Dental Screening Dental Screen Date: 09/28/24 HPI HPI Comments History of Present Illness Details The patient is a 49 year old male with a past medical history of chronic pain, low testosterone presenting for follow up Chronic pain: On percocet 10/325mg daily QID qty 112, baclofen. Pain levels are stable. Previously seeing ortho/physiatry. Tried cyclobenzaprine in past. Stopped working. Urology: Family history of prostate cancer. Low testosterone. [place] [facility] [place]. MSK right foot fracture. Saw orthopedics. 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 Cognitive needs: No Hearing needs: Yes (Hearing aids) Vision needs: No Questionnaire Thrive Questionnaire Date Thrive assessed: 04/21/24 I am a: Patient What is your living situation today?: I have a steady place to live Within the past 12 months, did the food you bought not last and you didn't have the money to get more?: I choose not to answer this question Within the past 12 months, did you worry whether your food would run out before you got money to buy more?: I choose not to answer this question Do you have trouble paying for medicines?: I choose not to answer this question Do you have trouble getting transportation to medical appointments?: I choose not to answer this question Do you have trouble paying your heating and electricity bill?: I choose not to answer this question Do you have trouble taking care of your child, family member or friend?: I choose not to answer this question Do you have trouble with day-to-day activities such as bathing, preparing meals, shopping, managing finances, etc.?: I choose not to answer this question Are you currently unemployed and looking for a job?: I choose not to answer this question Are you interested in more education?: I choose not to answer this question Please select the resources that you would like help with: None Currently or been in a relationship where the following occur: No concerns reported THRIVE Score: 0 AUDIT C Alcohol Use Questionnaire (AUDIT-C) 1. How often do you have a drink containing alcohol?: Monthly or less 2. How many drinks containing alcohol do you have on a typical day when you are drinking?: 1 or 2 3. How often do you have six or more drinks on one occasion?: Never Total Score: 1 ROBBI-7 AMB Questionnaire ROBBI-7 Date ROBBI - 7 assessed: 08/13/23 Source: Developed by Drs. Jeffrey Lubin, Galilea Mittal, Byron Wild and colleagues, with an educational valerie from [employer] Physical exam (Primary Care) Tobacco/Smoking Status: Tobacco use Status Tobacco use date assessed 01/04/25 01/04/25 16:18 Patient Tobacco Use Status Former Tobacco user 01/04/25 15:41 e-Cigarette/Vaping Use Currently Using 01/04/25 15:41 Thrive Assessment: Date of Thrive Assessment Date Thrive assessed 04/21/24 01/04/25 15:41 Currently or been in a relationship where the following occur: No concerns reported Telehealth Telehealth Telehealth Platform: Telephone Location of provider rendering services: practice address Location of patient: address on file Patient Identification confirmed using: Name, : Yes Telehealth method: voice only Patient verbally consented to treatment: Yes Patient verbally consented to billing insurance company: Yes Patient informed of any privacy concerns related to visit: Yes Minutes spent on Phone/Video with Pt.: 15 Coding Level of Care Code Tele Est Pt Level 2 (57449) Diagnoses Mixed hyperlipidemia E78.2 Hyperlipidemia type: mixed hyperlipidemia Testosterone deficiency E34.9 Chronic back pain, unspecified back location, unspecified back pain laterality M54.9; G89.29 Back pain location: back pain in unspecified location Chronicity: chronic Back pain laterality: unspecified Medication monitoring encounter Z51.81 Assessment & Plan Assessment & Plan (1) Hyperlipidemia: Code(s): E78.5 - Hyperlipidemia, unspecified Category: Medical Qualifiers: Hyperlipidemia type: mixed hyperlipidemia Qualified Code(s): E78.2 - Mixed hyperlipidemia (2) Testosterone deficiency: Code(s): E34.9 - Endocrine disorder, unspecified Category: Medical (3) Back pain: Code(s): M54.9 - Dorsalgia, unspecified Category: Medical Qualifiers: Back pain location: back pain in unspecified location Chronicity: chronic Back pain laterality: unspecified Qualified Code(s): M54.9 - Dorsalgia, unspecified; G89.29 - Other chronic pain (4) Medication monitoring encounter: Code(s): Z51.81 - Encounter for therapeutic drug level monitoring Category: Medical Plan Chronic pain, 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
== END 2025-01-04 16:30 | disposition home or self-care (01) ==
LOC: HO.HMCFM 16:18
PROVIDERS: PCP Internal Medicine; Visit Provider Internal Medicine
DX: E78.2 Mixed hyperlipidemia (principal); M54.89 Other dorsalgia; E34.9 Endocrine disorder, unspecified; Z51.81 Encounter for therapeutic drug level monitoring

== ENCOUNTER 2025-01-05 08:03 | Outpatient (REF) | payer OTHER, SELFPAY | END 2025-01-05 08:04 | disposition home or self-care (01) | LOC: HO.WFDLDS 08:03 | PROVIDERS: Visit Provider Urology | DX: R79.89 Other specified abnormal findings of blood chemistry (principal) | CPT/HCPCS: 36415; 84403 ==

== ENCOUNTER 2025-01-20 14:59 | Outpatient (AMB) | payer OTHER, SELFPAY ==
--- NOTE | 2025-01-20 14:59 | A.OFFVIS_ITS ---
Intake Visit Reasons: 3M testo follow up(set) Intake Note: Patient Is Present for Testosterone Results Urology Med: Testosterone, Sildenafil Antibiotic Allergy: Erythromycin Blood Thinner: None 01/05/2025- TESTOSTERONE- 1063 Chemical Analytical Sampler Required: No Allergies erythromycin base Allergy (Severe, Verified 01/20/25 14:59) Hives HPI Comments Details: William is a pleasant male. He is a patient of Dr. Palma. Seen for the following urologic conditions - low testosterone Telemedicine Evaluation 15 min Consultation Doximity Vaibhav Video Follow-up after switch to injectable High end of normal 3m f/u labs Low testosterone Has been on 10 mg oxycodone equivalent q.i.d. for chronic pain Family history prostate cancer Previously on transdermal replacement however questions regarding efficacy Labs - 10/26 210, 01/26 1063 PFSH Surgical History S/P right knee arthroscopy H/O arthroscopy of left knee H/O vasectomy S/P tonsillectomy Family History Father Hypercholesteremia Paternal Grandmother Breast cancer Paternal Grandfather Prostate cancer Social History Housing: House Patient Tobacco Use Status: Former Tobacco user Cigarette Packs Per Day: 1 Years Smoked: 20 e-Cigarette/Vaping Use: Currently Using Second Hand Smoke Exposure: No service: No Current occupational status: retired 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 Cognitive needs: No Hearing needs: Yes (Hearing aids) Vision needs: No Review of Systems Const All systems reviewed & are unremarkable except as noted in HPI and below Reports no additional complaints Resp Reports no additional complaints GI Reports no additional complaints Reports as per HPI Musc Reports no additional complaints Physical Exam Telemedicine evaluation Appropriate responses Regular breathing rate and rhythm HEENT Head: Yes normal to inspection Ears: hearing grossly normal bilaterally Eyes General: appearance normal, both eyes and all related structures Neck Neck: Yes normal visual inspection Chest Chest palpation & inspection: normal inspection of the chest Resp Effort & Inspection: normal respiratory effort and able to speak in complete sentences Telehealth Telehealth Telehealth Platform: Experience Headphones Location of provider rendering services: practice address Location of patient: address on file Patient Identification confirmed using: Name, : Yes Telehealth method: video Patient verbally consented to treatment: Yes Patient verbally consented to billing insurance company: Yes Patient informed of any privacy concerns related to visit: Yes Minutes spent on Phone/Video with Pt.: 15 Assessment & Plan Assessment & Plan (1) Low testosterone in male: Code(s): R79.89 - Other specified abnormal findings of blood chemistry Category: Medical Plan Continue with current dosing Orders: Orders Prostate Specific Antigen 3 Months E34.9 - Endocrine disorder, unspecified Complete Blood Count no Diff 3 Months E34.9 - Endocrine disorder, unspecified Testosterone, Total 3 Months E34.9 - Endocrine disorder, unspecified Medications: Refilled testosterone cypionate (Depo-Testosterone) 100 mg (0.5 mL) subcut QWEEK 2 mL 5RF 4 weeks E29.1 - Testicular hypofunction, R79.89 - Other specified abnormal findings of blood chemistry Patient Instructions: This note is constructed using voice recognition software. While every effort has been made to ensure accuracy manager advanced errors may have been included. Imaging studies, laboratory and physical exam results were discussed and reviewed in detail. No major barriers to patient understanding were identified. An opportunity to ask questions regarding the treatment plan was provided. All questions were answered. The patient expressed understanding and agreement with the above treatment plan. The patient is aware they should contact our office by phone for worsening of their current condition or the appearance of new urologic symptoms. Compliance is encouraged with any medications and followup testing that is ordered. It is a privilege to participate in the urologic care of your patient. If you have any questions or concerns regarding treatment for the above conditions, or other urologic issues, please do not hesitate to contact me. The office telephone contact is [phone]. Sincerely, Dr Terry Schneider MD, [facility] - Urology Compassionate Specialist Care for the Genitourinary System Coding Level of Care Code Tele Est Pt Level 3 (02118) Complex EM visit Add On G2211 Diagnoses Low testosterone in male R79.89
== END 2025-01-20 15:54 | disposition home or self-care (01) ==
LOC: HO.HUSH 14:59
PROVIDERS: PCP Internal Medicine; Visit Provider Urology
DX: R79.89 Other specified abnormal findings of blood chemistry (principal)
CPT/HCPCS: 99213